=== PATIENT | male | born 1945 | race Caucasian/White ===

== ENCOUNTER 2023-05-27 10:48 | Inpatient (IN) | payer OTHER ==
[2023-05-27] VITALS (16 sets, daily range): BP systolic 121–168; BP diastolic 58–100
[~2023-05-27] VITALS: Ht 175.3 cm; Wt 81.0 kg
[~2023-05-27 10:48] MED LIST: ALBU90OI INH; ATEN100 PO; ATEN25 PO; ATOR10 PO; AZIT250 PO; Aspir 8181 MG PO; CEFD300 PO; DOCU100 PO; DOXA2 PO; DOXA4 PO; DULCOLAX400 MG/5 M PO; FILG480I SC; FISH1000 PO; Hair, Skin & N1 EACH PO; LISI10 PO; LISI20 PO; LISI5 PO; METO25ER PO; MIRALAX17 GM PO; ROSU5 PO; RXCODGUASY PO; SOMATULINE60 MG/0.2 SC
[2023-05-27 11:05] LABS: Calcium, Ionized (POC) 1.13 mmol/L (1.10-1.46); Chloride (POC) 103 mmol/L (98-108); Creatinine (POC) 0.9 mg/dL (0.8-1.3); Glucose (ISTAT POC) 143 mg/dL (70-99); Hemoglobin (POC) 6.8 g/dL (13.5-17.5); Potassium (POC) 5.1 mmol/L (3.5-5.5); Sodium (POC) 139 mmol/L (135-148); Total CO2 (POC) 25 mmol/L (21-32)
[2023-05-27 11:23] LABS: Mean Corpuscular HGB 31.2 pg (26.0-34.0); Mean Corpuscular HGB Conc 30.5 g/dL (31.5-36.5); Mean Corpuscular Volume 102 fL (80-100); Mean Platelet Volume 9.3 fL (9.1-12.4); NRBC ABSOLUTE 0.04 K/mm3 (0.00-0.02); Platelet Count 88 K/mm3 (150-400); RDW Coefficient Variation 21.7 % (11.7-14.2); RDW Standard Deviation 77.9 fL (35.1-46.3)
[2023-05-27 11:28] LABS: Hemoglobin 5.3 g/dL (13.5-17.5); White Blood Cell Count 215.29 K/mm3 (4.00-11.30)
[2023-05-27 11:29] LABS: Hematocrit 17.4 % (37.0-53.0)
[2023-05-27 11:40] LABS: International Normalized Ratio 1.31; Prothrombin Time Results 13.5 Sec (9.7-11.5)
[2023-05-27 11:44] LABS: Magnesium, Blood 1.9 mg/dL (1.6-2.4)
[2023-05-27 12:19] LABS: Albumin, Blood 2.8 g/dL (3.4-5.0); Albumin/Globulin Ratio 0.8 (0.8-1.8); Bilirubin, Total 0.4 mg/dL (0.1-1.0); Bun/Creatinine Ratio 13.3 (12.0-20.0); Calcium, Blood 7.8 mg/dL (8.5-10.1); Creatinine, Blood 0.9 mg/dL (0.60-1.20); Globulin, Blood 3.7 g/dL (2.2-4.0); Potassium, Blood 6.5 mmol/L (3.5-5.5); Total Protein, Blood 6.5 g/dL (6.4-8.2)
[2023-05-27 13:13] LABS: BASOPHILS PERCENT MAN 0 % (0-2); BLASTS PERCENT MAN 85 % (0-0); EOSINOPHILS PERCENT MAN 0 % (0-6); LYMPHOCYTES ABSOLUTE MAN 30.14 K/mm3 (0.84-5.20); LYMPHOCYTES PERCENT MAN 14 % (21-46); MONOCYTES ABSOLUTE MAN 2.15 K/mm3 (0.16-1.47); MONOCYTES PERCENT MAN 1 % (4-13); TOTAL CELLS COUNTED 100
[2023-05-27 14:05] LABS: Calcium, Ionized (POC) 1.06 mmol/L (1.10-1.46); Chloride (POC) 101 mmol/L (98-108); Creatinine (POC) 0.9 mg/dL (0.8-1.3); Glucose (ISTAT POC) 223 mg/dL (70-99); Hemoglobin (POC) 7.1 g/dL (13.5-17.5); Potassium (POC) 3.5 mmol/L (3.5-5.5); Sodium (POC) 140 mmol/L (135-148); Total CO2 (POC) 25 mmol/L (21-32)
[2023-05-27] MEDS ORDERED: FOLIC ACID IV (15:22)
[2023-05-27 16:04] LABS: Percent Saturation 64.8 % (20.0-50.0)
--- NOTE | 2023-05-27 16:13 | NUR ---
PATIENT ADMIT TO PCU 06. ABLE TO STAND AND TRANSFER WITH 1-2 PERSON ASSIST. DENIES NUMBNESS/TINGLING. SHAKY WHEN UP. PATIENT STATES HE FEELS VERY WEAK. PERRLA. MOVING EXTREMITIES EQUALLY. 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 ON ROOM AIR SATING ABOVE 95%. LUNGS SOUNDING CLEAR. PT DENIES SOB/COUGH. EVEN AND UNLABORED RESPIRATIONS. TELE SHOWING SR WITH HR 70-90'S. BP STABLE. PPP. PATIENT DENIES CHEST PAIN AT THIS TIME. STATES THE CHEST PAIN HAS RESOLVED IN EMERGENCY DEPARTMENT. SCD'S IN PLACE. DENIES ABDOMINAL PAIN/NAUSEA. NO SWALLOWING ISSUES NOTED WHEN ADMINISTERING PO TYLENOL AND WATER. PATIENT STATES HE HAS NO ISSUES VOIDING. URINAL AT BEDSIDE. BOWEL TONES PRESENT. PATIENT COMPLAINS OF 5/10 HEADACHE ON ADMIT, PO TYLENOL GIVEN WITH GOOD RELIEF. ECHO BEING DONE AT THIS TIME. PATIENT ADMITED TO PCU WITH 2ND UNIT OF BLOOD INFUSING AT 150ML/HR IN LEFT UPPER ARM IV. HOURLY VITALS IN PROGRESS. ORDERS FOR 3 UNITS TOTAL OF PRBC PATIENT AND UPDATED ON PLAN OF CARE. BLOOD CONSENT IN CHART. PATIENT, AND TWO SONS UPDATED DIRECTOR MARKET INTELLIGENCE LIGHT AND ROOM/UNIT. MED REC COMPELTED WITH AND PATIENT. ONCOLOGY CONSULT CALLED INTO DR. CHAU OFFICE.
--- NOTE | 2023-05-27 17:44 | NUR ---
SHIFT SUMMARY: SEE PREVIOUS NOTE FOR UPDATES. PATIENT EATING DINNER AT THIS TIME. 3RD UNIT OF PRBC INFUSING AT THIS TIME. PATIENT DENIES CHEST PAIN/HEADACHE. NO EVENTS NOTED ON TELE. CONTINUES TO SAT ABOVE 95% ON ROOM AIR. CALL LIGHT IN REACH.
[2023-05-27 19:16] LABS: Hemoglobin 7.9 g/dL (13.5-17.5)
--- NOTE | 2023-05-27 19:43 | NUR ---
ASSUMPTION OF CARE: PATIENT IS ALERT AND ORIENTED X 4 EDENIES CHEST PAIN PRESSSURE OR SOB. INFUSING RBC'S AT 150, TOLERATING WELL, CLEAR WITH DIM BASES BREATH SOUNDS. HR IN THE 70-80'S. CYCLING BLOOD PRESSURES, TOLERATING RBC'S WELL. PATIENT HOB 30-45'. CONCERNS OF FURTHER MEDICAL PLAN. EDUCATED. TROP [id number] AT 1943. 1 X TROP STILL PLANNED. PATIENT OVERALL IMPROVING.
--- NOTE | 2023-05-27 22:03 | NUR ---
INCREASED TROP: CALL TO RESIDENT FOR TROPONIN, MONITOR FOR S&S OF BLEEDING, INCREASED CHEST PAIN, CALL IF NEXT TROP IS STILL INCREASING FOR ADDITIONAL TROP DRAWS, AND FOLLOW UP WITH AM LABS FOR HEMOGLOBIN. PATIENT CURRENTLY RESTING EYES CLOSED, DENIES INCREASED CHEST PAIN, MINOR RESIDUAL BUT IMPROVING, PATIENT WAS ABLE TO STAND WITH 1 ASSIST TO MANAGE CORDS AND LINES.
[2023-05-28 01:21] LABS: Hematocrit 24.8 % (37.0-53.0); Hemoglobin 8.3 g/dL (13.5-17.5); Mean Corpuscular HGB 31.4 pg (26.0-34.0); Mean Corpuscular HGB Conc 33.5 g/dL (31.5-36.5); Mean Platelet Volume 9.5 fL (9.1-12.4); NRBC ABSOLUTE 0.07 K/mm3 (0.00-0.02); Platelet Count 81 K/mm3 (150-400); RDW Coefficient Variation 18.7 % (11.7-14.2); RDW Standard Deviation 61.2 fL (35.1-46.3); Red Blood Cell Count 2.64 M/mm3 (4.30-5.90)
[2023-05-28 01:24] LABS: Mean Corpuscular Volume 94 fL (80-100)
[2023-05-28 01:25] LABS: White Blood Cell Count 200.51 K/mm3 (4.00-11.30)
[2023-05-28 01:42] LABS: BAND PERCENT MAN 1 % (0-8); BASOPHILS PERCENT MAN 0 % (0-2); BLASTS PERCENT MAN 59 % (0-0); Bun/Creatinine Ratio 14.5 (12.0-20.0); Calcium, Blood 7.8 mg/dL (8.5-10.1); Creatinine, Blood 0.83 mg/dL (0.60-1.20); EOSINOPHILS PERCENT MAN 0 % (0-6); LYMPHOCYTES ABSOLUTE MAN 70.17 K/mm3 (0.84-5.20); LYMPHOCYTES PERCENT MAN 35 % (21-46); MONOCYTES ABSOLUTE MAN 8.02 K/mm3 (0.16-1.47); MONOCYTES PERCENT MAN 4 % (4-13); NEUTROPHILS ABSOLUTE MAN 4.01 K/mm3 (1.96-9.15); Potassium, Blood 5.5 mmol/L (3.5-5.5); SEG NEUTROPHILS PERCENT MAN 1 % (41-73); TOTAL CELLS COUNTED 100
--- NOTE | 2023-05-28 01:48 | NUR ---
CRITICAL RESULTS: TROP [id number], WBC 200.51, CALL TO RESIDENT NO ANSWER AT THIS TIME, PATIENT IS ASYMPTOMATIC VSS, - BLOOD PRESSURE, WHICH IS SLIGHTLY SYSTOLIC HYPERTENSIVE IN THE 150'S. DENEIS CHEST PAIN PRESSURE OR SOB. PATIENT RESTING EYES CLOSED HOURLY BLOOD PRESSURES IN PROGRESS.
[2023-05-28 01:51] VITALS: BP 158/84
--- NOTE | 2023-05-28 02:34 | NUR ---
RESIDENT CALL: INFORMED PROVIDER ABOUT LABS, NEW ORDER FOR TROP AND 1 X APPRESOLINE FOR BLOOD PRESSURE. MONITOR FOR SIGNS OF CHEST PAIN PRESSURE OR SOB.
--- NOTE | 2023-05-28 06:48 | NUR ---
EOS: PATIENT STILL CHEST PAIN FREE WITH INCREASING TOLERATION FOR MOBILITY. PATIENT COOPERATIVE ALERT AND ORIENTED, NO CONCERNS FROM THIS RN EXCEPT WHAT WAS PLACD IN NURSING NOTES PRIOR: I.E. TROP, HGB, ADN WBC. HOPING FOR ONCOLOGY TO VISIT IS THE CONCERN DON HAS. PATIENT TOLERATING FLUIDS, SLEPT WELL DURING THE BEGGINING OF THE SHIFT. HYDRALAZINE ONLY WORKED AFTER A COUPLE HOURSS, SYSTOLIC BP 140'S. PATIENT HAS BEEN APPRORPIATE AND CALLING APPROPRIATELY. COOPERATIVE WITH CARE NO CONCERNS FROM THIS RN
[2023-05-28 07:20] VITALS: BP 146/77
--- NOTE | 2023-05-28 07:47 | NUR ---
AM NOTE: PATIENT ALERT AND ORIENTED X4. DENIES NUMBNESS/TINGLING. PATIENT STATES HE IS FEELING MUCH STRONGER. TURNING AND MOVING SELF IN BED. 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 ON ROOM AIR SATING ABOVE 95%. EVEN AND UNLABORED RESPIRATIONS. LUNGS SOUNDING CLEAR. DENIES SOB/COUGH. TELE SHOWING SR WITH HR 80-90'S. DENIES CHEST PAIN/PRESSURE/PALPITATIONS. BP STABLE. PPP. SCD'S IN PLACE. NO EDEMA NOTED. BOWEL TONES PRESENT. DENIES ABDOMINAL PAIN/NAUSEA. EATING AND VOIDING WNL. USING URINAL AT BEDSIDE. SKIN OVERALL C/D/I. PATIENT DENIES OVERALL PAIN THIS AM. FAMILY AT BEDSIDE. THIS RN REVIEWED CALL LIGHT AND FALL PREVENTION WITH PATIENT AND FAMILY. CALL LIGHT IN REACH. PATIENT EATING BREAKFAST AT THIS TIME, DENIES NEEDS.
--- NOTE | 2023-05-28 09:18 | NUR ---
DR. BRADLEY CALLED NURSE STATION THIS AM. ORDER FOR CARDIOLOGY CONSULT AND HEPARIN GTT. CARDIOLOGY CONSULT CALLED INTO ANSWERING SERVICE. PATIENT AND FAMILY UPDATED.
--- NOTE | 2023-05-28 10:33 | NUR ---
DR. HUITRON AND DR. ALMAGUER BY TO SEE PATIENT. HEPARIN DISCONTINUED PER CARDIOLOGY. PLAN FOR DR. CHAU TO SEE PATIENT. CONSULT IN PLACE.
[2023-05-28 11:17] VITALS: BP 155/69
[2023-05-28] MEDS ORDERED: ACYC400 PO (13:39)
[2023-05-28] MEDS ORDERED: Diflucan100 MG PO (13:40)
[2023-05-28] MEDS ORDERED: ASPI325 PO (13:40)
[2023-05-28] MEDS ORDERED: LEVO750 PO (13:43)
--- NOTE | 2023-05-28 14:41 | NUR ---
DISCHARGE: NO ACUTE CHANGES. PATIENT FAMILY AT BEDSIDE FOR DISCHARGE INSTUCTIONS. THIS RN EDUCATED ON NEW MEDICATIONS THAT WERE FAXED TO [facility], SIGNS AND SYMPTOMS OF WHEN TO RETURN, FOLLOW UP APPOINTMENTS AND CHEMO MEDICATION HANDOUT FROM DR. CHAU. IV'S REMOVED WNL. PATIENT LEFT UNIT WITH DISCHARGE PACKET AND ALL PERSONAL BELONGINGS VIA WHEELCHAIR.
== END 2023-05-28 14:39 | disposition home or self-care (01) | DRG 834 ==
LOC: ER 10:48 → PCU 10:49 → ER 10:49 → PCU 13:36
PROVIDERS: Student in an Organized Health Care Education/Training Program; ADMIT Internal Medicine
PROC: 30233N1 Transfusion of Nonautologous Red Blood Cells into Peripheral Vein, Percutaneous Approach (ICD-10-PCS; principal; 2023-05-27)
DX: C92.00 Acute myeloblastic leukemia, not having achieved remission (principal); I21.A1 Myocardial infarction type 2; C7A.8 Other malignant neuroendocrine tumors; D63.0 Anemia in neoplastic disease; D51.9 Vitamin B12 deficiency anemia, unspecified; E87.5 Hyperkalemia; N40.0 Benign prostatic hyperplasia without lower urinary tract symptoms; Z66 Do not resuscitate; E78.5 Hyperlipidemia, unspecified; K21.9 Gastro-esophageal reflux disease without esophagitis; D69.6 Thrombocytopenia, unspecified; R73.9 Hyperglycemia, unspecified; I10 Essential (primary) hypertension; Z88.0 Allergy status to penicillin; Z87.891 Personal history of nicotine dependence; Z90.49 Acquired absence of other specified parts of digestive tract
CPT/HCPCS: 36415; 36430; 71260; 80047; 80048; 80053; 82330; 82607; 82728; 82746; 82947; 83540; 83550; 83735; 83880; 84132; 84484; 85014; 85018; 85025; 85520; 85610; 85730; 86850; 86900; 86901; 86923; 93005; 93010; 93306; 94644; 94664; 96374-59; 96375-59; 99285-25; A9270; J0360; J1644; J1815; J7030; J7040; J7799; P9016; Q9967

== ENCOUNTER 2023-05-31 17:03 | Inpatient (IN) | payer OTHER ==
[~2023-05-31] VITALS: Ht 175.3 cm; Wt 91.7 kg
[~2023-05-31 17:03] MED LIST changes: +ACYC400 PO; +ASPI325 PO; +Diflucan100 MG PO; +FOLIC ACID IV; +LEVO750 PO
[2023-05-31] MEDS ORDERED: B-12 COMPL1000 MCG/2 IM (17:35)
[2023-05-31 19:19] LABS: Source, Urine Clean Catch
[2023-05-31 19:29] LABS: Bilirubin, Urine Neg (Neg); Blood, Urine 1+ (Neg); Glucose Qualitative, Urine Neg (Neg); Ketones, Urine Neg (Neg); Leukocyte Esterase, Urine Neg (Neg); Nitrite, Urine Neg (Neg); Protein, Urine 1+ (Neg); Specific Gravity, Urine 1.015 (1.003-1.022); Urobilinogen, Urine NORM (Normal)
[2023-05-31 19:39] LABS: Appearance, Urine Clear (Clear); Color, Urine Yellow (P-Yellow)
[2023-05-31 19:40] LABS: Bacteria Not Seen /hpf; Red Blood Cells, Urine 0-2 /hpf (0-2); Squamous Epithelial Cells Rare /hpf (Few); White Blood Cells, Urine 0-2 /hpf (0-5)
[2023-05-31 21:35] VITALS: BP 152/84
--- NOTE | 2023-05-31 22:07 | NUR ---
PT A&OX4, WAS SEEN AT [place] EARLIER TODAY AFTER PRBC TRANSFUSION ON TUESDAY WITH HEPRIN DRIP RIGHT ARM BECAME PAINFUL AND SWOLLEN THAT EVENING PT STATES RETURN TO [place] FOR TREAT AND WAS TRANSFERED HERE. RIGHT ARM APPEARS SWOLLEN FIRM WARM TO TOUCH. PT REPORTS PAINFUL WITH MOVEMENT. LUNGS ARE CLEAR T/O ABDOMEN TO SOFT NONTENDER PT REPORTS REGULAR BM, 2 IV LEFT HAND AND AC PLAACED AT [facility]. INDEPENDENT ADLIB, REPORTS URGENCY TO VOID. BED LOWERED CALL WITHIN REACH WILL CONTINUE TO MONITOR.
[2023-06-01 04:46] VITALS: BP 123/84
[2023-06-01 05:45] LABS: Hematocrit 27.3 % (37.0-53.0); Mean Corpuscular HGB 32.1 pg (26.0-34.0); Mean Corpuscular Volume 98 fL (80-100); RDW Standard Deviation 66.7 fL (35.1-46.3)
[2023-06-01 06:08] LABS: Mean Platelet Volume 9.1 fL (9.1-12.4); Platelet Count 77 K/mm3 (150-400)
[2023-06-01 06:13] LABS: White Blood Cell Count 207.97 K/mm3 (4.00-11.30)
[2023-06-01 06:20] LABS: Bun/Creatinine Ratio 10.5 (12.0-20.0); Calcium, Blood 8.4 mg/dL (8.5-10.1); Creatinine, Blood 1.33 mg/dL (0.60-1.20); Potassium, Blood 4.6 mmol/L (3.5-5.5)
[2023-06-01 06:59] LABS: BASOPHILS PERCENT MAN 0 % (0-2); BLASTS PERCENT MAN 84 % (0-0); EOSINOPHILS PERCENT MAN 0 % (0-6); LYMPHOCYTES % ATYPICAL MANUAL 1 % (0-0); LYMPHOCYTES ABSOLUTE MAN 22.87 K/mm3 (0.84-5.20); LYMPHOCYTES PERCENT MAN 10 % (21-46); MONOCYTES ABSOLUTE MAN 10.39 K/mm3 (0.16-1.47); MONOCYTES PERCENT MAN 5 % (4-13); TOTAL CELLS COUNTED 100
[2023-06-01 07:13] VITALS: BP 143/80
[2023-06-01 14:36] VITALS: BP 146/80
--- NOTE | 2023-06-01 18:45 | NUR ---
PT IS ALERT AND ORIENTED X4. NO ACUTE CHANGES THIS SHIFT. PAIN IS WELL CONTROLLED WITH PAIN MEDICAION AND ICE PACKS TO THE RIGHT ARM. INDEPENDENT IN THE ROOM. PT FAMILY IN AND OUT TODAY. EDUCATED PT ON MEDICATION CHANGES DUE TO KIDNEY FUNCTION. NO ACUTE CHANGES.
[2023-06-01 19:27] VITALS: BP 123/67
[2023-06-02 03:50] VITALS: BP 131/73
--- NOTE | 2023-06-02 04:51 | NUR ---
SHIFT SUMMARY. NO ACUTE CHANGES. PATIENT IS A/O X4, ABLE TO MAKE HIS NEEDS KNOWN. PATIENTS FAMILY IN THIS EVENING. PATIENT HAD NO C/O PAIN THIS SHIFT. PATIENT SLEPT WELL T/O NIGHT WITH RESPIRATIONS EQUAL AND UNLABORED. BED IS LOCKED IN THE LOWEST POSITION WITH CALL LIGHT IN REACH. NO S/S OF DISTRESS NOTED AT THIS TIME.
[2023-06-02 05:58] LABS: Hematocrit 26.8 % (37.0-53.0); Hemoglobin 8.7 g/dL (13.5-17.5); Mean Corpuscular HGB 31.5 pg (26.0-34.0); Mean Corpuscular HGB Conc 32.5 g/dL (31.5-36.5); Mean Corpuscular Volume 97 fL (80-100); Mean Platelet Volume 9.6 fL (9.1-12.4); NRBC ABSOLUTE 0.02 K/mm3 (0.00-0.02); Platelet Count 79 K/mm3 (150-400); RDW Coefficient Variation 18.6 % (11.7-14.2); RDW Standard Deviation 63.7 fL (35.1-46.3); Red Blood Cell Count 2.76 M/mm3 (4.30-5.90)
[2023-06-02 06:23] LABS: Albumin, Blood 2.5 g/dL (3.4-5.0); Albumin/Globulin Ratio 0.6 (0.8-1.8); Bilirubin, Total 0.3 mg/dL (0.1-1.0); Bun/Creatinine Ratio 9.7 (12.0-20.0); Calcium, Blood 8.4 mg/dL (8.5-10.1); Creatinine, Blood 2.68 mg/dL (0.60-1.20); Globulin, Blood 4.1 g/dL (2.2-4.0); Potassium, Blood 5.1 mmol/L (3.5-5.5); Total Protein, Blood 6.6 g/dL (6.4-8.2)
[2023-06-02 06:28] LABS: White Blood Cell Count 169.68 K/mm3 (4.00-11.30)
[2023-06-02 07:11] LABS: BASOPHILS PERCENT MAN 0 % (0-2); BLASTS PERCENT MAN 83 % (0-0); EOSINOPHILS PERCENT MAN 0 % (0-6); LYMPHOCYTES ABSOLUTE MAN 25.45 K/mm3 (0.84-5.20); LYMPHOCYTES PERCENT MAN 15 % (21-46); MONOCYTES ABSOLUTE MAN 1.69 K/mm3 (0.16-1.47); MONOCYTES PERCENT MAN 1 % (4-13); NEUTROPHILS ABSOLUTE MAN 1.69 K/mm3 (1.96-9.15); SEG NEUTROPHILS PERCENT MAN 1 % (41-73); TOTAL CELLS COUNTED 100
[2023-06-02 07:37] VITALS: BP 133/71
[2023-06-02 10:57] LABS: Thyroid Stimulating Hormone 1.56 uIU/mL (0.360-4.800); Uric Acid, Blood 9.2 mg/dL (3.5-7.2)
[2023-06-02 15:17] LABS: Eosinophils-Raw #,Urine 0
[2023-06-02 16:06] VITALS: BP 107/60
--- NOTE | 2023-06-02 16:47 | NUR ---
NO ACUTE CHANGES THIS SHIFT. PT ANTIBIOTICS HAVE BEEN CHANGES TO REFLECT HIS KIDNEY FUNCTION. MI REPORTS NO BM FOR 4 DAYS. BOWEL CARE MEDICATIONS TO START TONIGHT. PT DENIES PAIN IN CHEST AND SOB. DENIES PAIN IN RIGHT ARM THIS SHIFT. FAMILY HAS BEEN IN AND OUT ALL DAY. PT REPORTS EXHAUSTION. RECOMMENDING LIMITING SLEEP INTERUPTIONS FOR NON ESSENTIAL NEEDS. NOTE ON DOOR TO SEE RN BEFORE ENTERING. PT REPORTS INCREASE IN PO INTAKE. DR. MORALES WOULD LIKE STRICT I/O. NEPHROLOGY CONSULTED. PT IS ABLE TO MAKE NEEDS KNOWN. BED IS IN THE LOWEST POSITION CALL LIGHT IN REACH. PT IS INDEPENDENT IN THE ROOM. RAleshaA
[2023-06-02 19:32] VITALS: BP 116/58
--- NOTE | 2023-06-03 04:26 | NUR ---
SHIFT SUMMARY PATIENT HAD NO ACUTE CHANGES. AXOX [address] IN ROOM. DR Christianson IN FOR ROOM FOR CONSULT. PIV REMAINS INTACT. VSS/AFEBRILE. DENIES CHEST PAIN, SOB, AND N/V. DENIES PAIN IN RIGHT UPPER ARM. COOPERATIVE WITH CARE. CALL LIGHT IN REACH. BED IN LOWEST POSITION. WILL CONTINUE TO MONITOR UNTIL DAY SHIFT NURSE ASSUMES CARE.
[2023-06-03 04:38] VITALS: BP 134/68
[2023-06-03 05:20] LABS: Hematocrit 24.4 % (37.0-53.0); Hemoglobin 7.8 g/dL (13.5-17.5); Mean Corpuscular HGB 31.3 pg (26.0-34.0); Mean Corpuscular Volume 98 fL (80-100); RDW Coefficient Variation 18.8 % (11.7-14.2); RDW Standard Deviation 66.4 fL (35.1-46.3); Red Blood Cell Count 2.49 M/mm3 (4.30-5.90)
[2023-06-03 05:54] LABS: Mean Platelet Volume 9.8 fL (9.1-12.4); Platelet Count 79 K/mm3 (150-400)
[2023-06-03 05:55] LABS: White Blood Cell Count 167.44 K/mm3 (4.00-11.30)
[2023-06-03 07:05] VITALS: BP 129/63
[2023-06-03 07:06] LABS: BASOPHILS PERCENT MAN 0 % (0-2); BLASTS PERCENT MAN 84 % (0-0); EOSINOPHILS PERCENT MAN 0 % (0-6); LYMPHOCYTES % ATYPICAL MANUAL 2 % (0-0); LYMPHOCYTES ABSOLUTE MAN 23.44 K/mm3 (0.84-5.20); LYMPHOCYTES PERCENT MAN 12 % (21-46); MONOCYTES ABSOLUTE MAN 3.34 K/mm3 (0.16-1.47); MONOCYTES PERCENT MAN 2 % (4-13); TOTAL CELLS COUNTED 100
[2023-06-03 07:23] LABS: Albumin, Blood 2.3 g/dL (3.4-5.0); Anion Gap 5 mmol/L (6-16); Blood Urea Nitrogen 34 mg/dL (8-24); Bun/Creatinine Ratio 11.9 (12.0-20.0); CO2, Blood 26 mmol/L (21-32); Calcium, Blood 8.4 mg/dL (8.5-10.1); Chloride, Blood 110 mmol/L (98-108); Creatinine, Blood 2.86 mg/dL (0.60-1.20); Glomerular Filtration Rate 22 (60-); Glucose, Blood 144 mg/dL (70-99); Phosphorus, Blood 3.9 mg/dL (2.5-4.9); Potassium, Blood 4.4 mmol/L (3.5-5.5); Sodium, Blood 141 mmol/L (136-145)
[2023-06-03 16:09] VITALS: BP 120/66
--- NOTE | 2023-06-03 19:45 | NUR ---
AWAKE. SMILING. VOICED TYLENOL EFFECTIVE. DENIED HEADACHE. CALL LIGHT IN REACH. NEUTROPENIC PRECAUIONS MAINTAINED.
[2023-06-03 19:50] VITALS: BP 121/66
--- NOTE | 2023-06-03 20:42 | NUR ---
SHIFT SUMMARY PATIENT WITH SLIGHT HEADACHE THIS EVENING.STATES EARLIER TODAY WAS A LITTLE OFF WHEN TAKING HIS SHOWER BUT OTHERWISE NO COMPLAINTS. OTHERWISE NO ACUTE EVENTS DURING SHIFT. BED IN LOW POSITION, CALL LIGHT IN REACH. PATIENT AWARE OF LIMITIATIONS AND ABLE TO MAKE NEEDS KNOWN.
--- NOTE | 2023-06-03 20:58 | NUR ---
PT A&OX4 UP ADLIB CALL APPROPERAITELY, PT HAS RIGHT ARM THROMBOPHELBITIS REDUCED SWELLING LOCALIZED NOW TO AC AND ELBOW MOSTLY. L HAND IV IS PATENT SALINE LOCKED, LUNGS ARE CLEAR T/O, BOWEL SOUNDS HYPERACTIVE. CALL LIGHT WITHIN REACH BED LOWERED WILL CONTINUE TO MONITOR.
[2023-06-04 03:33] VITALS: BP 140/75
--- NOTE | 2023-06-04 03:37 | NUR ---
WEATHER FORECASTER SUMMARY VSS. DAY SHIFT REPORTED HEADACHE FOR WHICH HE HAD RECEIVED TYLENOL. MED EFFECTIVE, START OF SHIFT WAS SMILING AND RECEPTIVE. RIGHT ARM SWOLLEN AND SLIGHTLY DISCOLORED. RN WHO HAD HIM YESTERDAY VOICED SWELLING AND DISCOLORATION IMPROVED. PT DISPLAYED ABILITY TO MOVE ARM WITH GOOD ROM. HAS BEEN RESTING QUIETLY WITH FEW INTERRUPTIONS. NEUTROPENIC PRECAUIONS MAINTAINED. CALL LIGHT IN REACH. RAILS UP X 2 FOR SAFETY. WILL CONTINUE TO MONITOR
[2023-06-04 05:23] LABS: Hemoglobin 8.5 g/dL (13.5-17.5); Mean Corpuscular HGB 31.1 pg (26.0-34.0); Mean Corpuscular HGB Conc 31.5 g/dL (31.5-36.5); Mean Corpuscular Volume 99 fL (80-100); Mean Platelet Volume 9.8 fL (9.1-12.4); NRBC ABSOLUTE 0.03 K/mm3 (0.00-0.02); Platelet Count 91 K/mm3 (150-400); RDW Coefficient Variation 18.6 % (11.7-14.2); RDW Standard Deviation 65.2 fL (35.1-46.3); Red Blood Cell Count 2.73 M/mm3 (4.30-5.90)
[2023-06-04 05:32] LABS: White Blood Cell Count 170.38 K/mm3 (4.00-11.30)
[2023-06-04 06:03] LABS: BASOPHILS PERCENT MAN 0 % (0-2); BLASTS PERCENT MAN 93 % (0-0); EOSINOPHILS PERCENT MAN 0 % (0-6); LYMPHOCYTES ABSOLUTE MAN 5.11 K/mm3 (0.84-5.20); LYMPHOCYTES PERCENT MAN 3 % (21-46); MONOCYTES ABSOLUTE MAN 5.11 K/mm3 (0.16-1.47); MONOCYTES PERCENT MAN 3 % (4-13); SEG NEUTROPHILS PERCENT MAN 1 % (41-73); TOTAL CELLS COUNTED 100
[2023-06-04 07:02] LABS: Albumin, Blood 2.5 g/dL (3.4-5.0); Anion Gap 5 mmol/L (6-16); Blood Urea Nitrogen 45 mg/dL (8-24); Bun/Creatinine Ratio 15.8 (12.0-20.0); CO2, Blood 28 mmol/L (21-32); Calcium, Blood 8.9 mg/dL (8.5-10.1); Chloride, Blood 109 mmol/L (98-108); Creatinine, Blood 2.85 mg/dL (0.60-1.20); Glomerular Filtration Rate 22 (60-); Glucose, Blood 125 mg/dL (70-99); Phosphorus, Blood 4.4 mg/dL (2.5-4.9); Potassium, Blood 4.9 mmol/L (3.5-5.5); Sodium, Blood 142 mmol/L (136-145); Uric Acid, Blood 10.2 mg/dL (3.5-7.2)
[2023-06-04 07:14] VITALS: BP 158/87
[2023-06-04 16:05] VITALS: BP 131/72
--- NOTE | 2023-06-04 18:16 | NUR ---
SHIFT SUMMARY C/O MILD HEADACHE TREATED WITH APAP, POSITIVE RESULTS. INDEPENDENT IN ROOM. IV DRESSING CHANGED THIS SHIFT. RUNNING IV FLUIDS, NO COMPLICATIONS. WILL CONTINUE TO MONITOR
[2023-06-04 19:27] VITALS: BP 116/61
--- NOTE | 2023-06-05 03:23 | NUR ---
EBAY RESELLER SUMMARY VSS. NEUTROPENIC PRECAUTIONS MAINTAINED FOR PT HEALTH. DENIED PAIN WHEN ASKED. IVF INFUSED PER ORDERS. RIGHT ARM SWELLING APPEARS DECREASED COMPARED WITH THAT OF 24 HR AGO. DISPLAYED FULL ROM OF ARM. HAS BEEN RESTING QUIELTY WITH FEW INTERRUPTIONS. CALL LIGHT IN REACH. RAILS UP X 2 FORSAFETY. WILL CONTINUE TO MONITOR
[2023-06-05 04:30] VITALS: BP 149/81
[2023-06-05 05:47] LABS: Hematocrit 25.1 % (37.0-53.0); Hemoglobin 7.8 g/dL (13.5-17.5); Mean Corpuscular HGB Conc 31.1 g/dL (31.5-36.5); Mean Corpuscular Volume 100 fL (80-100); Mean Platelet Volume 9.7 fL (9.1-12.4); NRBC ABSOLUTE 0.03 K/mm3 (0.00-0.02); Platelet Count 94 K/mm3 (150-400); RDW Coefficient Variation 18.5 % (11.7-14.2); RDW Standard Deviation 66.7 fL (35.1-46.3); Red Blood Cell Count 2.52 M/mm3 (4.30-5.90)
[2023-06-05 05:50] LABS: White Blood Cell Count 172.35 K/mm3 (4.00-11.30)
[2023-06-05 06:12] LABS: Albumin, Blood 2.5 g/dL (3.4-5.0); Anion Gap 3 mmol/L (6-16); Blood Urea Nitrogen 51 mg/dL (8-24); Bun/Creatinine Ratio 18.6 (12.0-20.0); CO2, Blood 28 mmol/L (21-32); Calcium, Blood 8.6 mg/dL (8.5-10.1); Chloride, Blood 109 mmol/L (98-108); Creatinine, Blood 2.74 mg/dL (0.60-1.20); Glomerular Filtration Rate 23 (60-); Glucose, Blood 124 mg/dL (70-99); Phosphorus, Blood 4.1 mg/dL (2.5-4.9); Potassium, Blood 5.6 mmol/L (3.5-5.5); Sodium, Blood 140 mmol/L (136-145)
[2023-06-05 06:18] LABS: BASOPHILS PERCENT MAN 0 % (0-2); BLASTS PERCENT MAN 91 % (0-0); EOSINOPHILS PERCENT MAN 0 % (0-6); LYMPHOCYTES ABSOLUTE MAN 10.34 K/mm3 (0.84-5.20); LYMPHOCYTES PERCENT MAN 6 % (21-46); MONOCYTES ABSOLUTE MAN 5.17 K/mm3 (0.16-1.47); MONOCYTES PERCENT MAN 3 % (4-13); TOTAL CELLS COUNTED 100
[2023-06-05 07:25] VITALS: BP 152/87
[2023-06-05 09:14] LABS: Percent Saturation 95.3 % (20.0-50.0)
[2023-06-05 12:33] LABS: Bun/Creatinine Ratio 18.6 (12.0-20.0); Creatinine, Blood 2.64 mg/dL (0.60-1.20); Potassium, Blood 4.5 mmol/L (3.5-5.5)
[2023-06-05 14:48] VITALS: BP 129/72
[2023-06-05 19:56] VITALS: BP 128/67
[2023-06-06 04:31] VITALS: BP 122/72
--- NOTE | 2023-06-06 05:42 | NUR ---
SHIFT SUMMARY 77 YR M ADMITTED ON 06/01/23 FOR THROMBOPHLEBITIS OF RIGHT ARM. FULL CODE. NO ACUTE CHANGES THIS SHIFT. PT WAS GIVEN TYLENOL PER EMAR FOR C/O HEADACHE. NO OTHER C/O PAIN OR DISCOMFORT. PT APPEARS TO HAVE RESTED COMFORTABLY FOR MOST OF THIS SHIFT. NO C/O CHEST PAIN, SOB, N/V. NEUTROPENIC CAUTIONS BEING TAKEN.
[2023-06-06 06:15] LABS: Hematocrit 23.4 % (37.0-53.0); Hemoglobin 7.6 g/dL (13.5-17.5); Mean Corpuscular HGB 31.8 pg (26.0-34.0); Mean Corpuscular HGB Conc 32.5 g/dL (31.5-36.5); Mean Corpuscular Volume 98 fL (80-100); Mean Platelet Volume 9.7 fL (9.1-12.4); Platelet Count 91 K/mm3 (150-400); RDW Coefficient Variation 18.5 % (11.7-14.2); RDW Standard Deviation 65.1 fL (35.1-46.3); Red Blood Cell Count 2.39 M/mm3 (4.30-5.90)
[2023-06-06 06:35] LABS: White Blood Cell Count 163.04 K/mm3 (4.00-11.30)
[2023-06-06 06:40] LABS: Albumin, Blood 2.5 g/dL (3.4-5.0); Anion Gap 3 mmol/L (6-16); Blood Urea Nitrogen 53 mg/dL (8-24); Bun/Creatinine Ratio 20.6 (12.0-20.0); CO2, Blood 28 mmol/L (21-32); Calcium, Blood 8.6 mg/dL (8.5-10.1); Chloride, Blood 111 mmol/L (98-108); Creatinine, Blood 2.57 mg/dL (0.60-1.20); Glomerular Filtration Rate 25 (60-); Glucose, Blood 129 mg/dL (70-99); Phosphorus, Blood 4.1 mg/dL (2.5-4.9); Sodium, Blood 142 mmol/L (136-145)
[2023-06-06 07:10] LABS: BASOPHILS PERCENT MAN 0 % (0-2); BLASTS PERCENT MAN 84 % (0-0); EOSINOPHILS PERCENT MAN 0 % (0-6); LYMPHOCYTES % ATYPICAL MANUAL 1 % (0-0); LYMPHOCYTES ABSOLUTE MAN 17.93 K/mm3 (0.84-5.20); LYMPHOCYTES PERCENT MAN 10 % (21-46); MONOCYTES ABSOLUTE MAN 8.15 K/mm3 (0.16-1.47); MONOCYTES PERCENT MAN 5 % (4-13); TOTAL CELLS COUNTED 100
[2023-06-06 07:12] LABS: SEG NEUTROPHILS PERCENT MAN 0 % (41-73)
[2023-06-06 07:14] VITALS: BP 141/81
[2023-06-06] MEDS ORDERED: ELIQUIS5 M2 PO (10:54)
[2023-06-06] MEDS ORDERED: DOXY100 PO (10:57)
[2023-06-06] MEDS ORDERED: Carvedilol12.5 MG PO (10:57)
[2023-06-06] MEDS ORDERED: Isosorbide Mono30 MG PO (10:58)
[2023-06-06] MEDS ORDERED: LOKELMA10 GM PO (10:59)
[2023-06-06] MEDS ORDERED: VISBIOME 112.51 EACH PO (10:59)
--- NOTE | 2023-06-06 12:12 | NUR ---
DISCHARGE NOTE PT DISCHARGED TO HOME, PICKED UP BY HIS . IV REMOVED. DISCHARGE INFORMATION AND EDUCATION PROVIDED TO THE PT. MEDICATIONS FAXED TO THE PHARMACY OF HIS CHOICE. PERSONAL BELONGINGS RETURNED.
== END 2023-06-06 12:00 | disposition home or self-care (01) | DRG 280 ==
LOC: ER 17:03 → MEDS 17:04
PROVIDERS: Emergency Medicine; Family Medicine; Hospitalist; Internal Medicine; Nurse Practitioner Acute Care; ADMIT Internal Medicine
DX: I80.8 Phlebitis and thrombophlebitis of other sites (principal); N17.0 Acute kidney failure with tubular necrosis; I21.4 Non-ST elevation (NSTEMI) myocardial infarction; I82.611 Acute embolism and thrombosis of superficial veins of right upper extremity; C92.00 Acute myeloblastic leukemia, not having achieved remission; C7A.019 Malignant carcinoid tumor of the small intestine, unspecified portion; L03.113 Cellulitis of right upper limb; D84.9 Immunodeficiency, unspecified; N40.0 Benign prostatic hyperplasia without lower urinary tract symptoms; I10 Essential (primary) hypertension; K21.9 Gastro-esophageal reflux disease without esophagitis; E78.5 Hyperlipidemia, unspecified; D63.0 Anemia in neoplastic disease; D69.6 Thrombocytopenia, unspecified; E87.6 Hypokalemia; Z88.0 Allergy status to penicillin; Z90.49 Acquired absence of other specified parts of digestive tract; Z87.891 Personal history of nicotine dependence
CPT/HCPCS: 36415; 71045; 76770; 80048; 80053; 80069; 81001; 82570; 82607; 82728; 82746; 83540; 83550; 83605; 84300; 84443; 84550; 85025; 87040; 87205; 93971; 96365; 96375; 99285-25; A9270; G0378; J0690; J3010; J3370; J7030; J7050

== ENCOUNTER 2023-06-09 04:08 | Day surgery (SDC) | payer OTHER ==
[~2023-06-09 04:08] MED LIST changes: +B-12 COMPL1000 MCG/2 IM; +Carvedilol12.5 MG PO; +DOXY100 PO; +ELIQUIS5 M2 PO; +Isosorbide Mono30 MG PO; +LOKELMA10 GM PO; +VISBIOME 112.51 EACH PO
[2023-06-09] MEDS ORDERED: NS 250 ML IV PRN (11:35)
[2023-06-09 14:43] VITALS: BP 120/61
[2023-06-09 15:43] VITALS: BP 133/56
[2023-06-09 16:19] VITALS: BP 132/60
== END 2023-06-09 16:19 | disposition home or self-care (01) ==
LOC: ATC 04:08
DX: C92.00 Acute myeloblastic leukemia, not having achieved remission (principal)
CPT/HCPCS: 36430; 86850; 86900; 86901; 86923; J7050; P9016

== ENCOUNTER 2023-06-16 13:38 | Emergency (ER) | payer OTHER ==
[~2023-06-16] VITALS: Ht 172.7 cm; Wt 74.8 kg
[2023-06-16] MEDS ORDERED: ALLOPURINOL100 M1 PO (14:09)
[2023-06-16] MEDS ORDERED: CARVEDILOL12.5 MG PO (14:09)
[2023-06-16 15:23] LABS: Bun/Creatinine Ratio 25.3 (12.0-20.0); Calcium, Blood 8.4 mg/dL (8.5-10.1); Creatinine, Blood 1.7 mg/dL (0.60-1.20); Potassium, Blood 4.1 mmol/L (3.5-5.5)
[2023-06-16 18:45] VITALS: BP 129/74
== END 2023-06-16 19:53 | disposition home or self-care (01) ==
LOC: ER 13:38
PROVIDERS: Emergency Medicine
DX: S06.9X1A Unspecified intracranial injury with loss of consciousness of 30 minutes or less, initial encounter (principal); D64.9 Anemia, unspecified; D61.818 Other pancytopenia; W18.30XA Fall on same level, unspecified, initial encounter; I10 Essential (primary) hypertension; E78.5 Hyperlipidemia, unspecified; Z88.0 Allergy status to penicillin; Z79.899 Other long term (current) drug therapy
CPT/HCPCS: 36430; 70450; 80048; 86850; 86900; 86901; 86923; 93005; 93010; 99285-25; J7030; P9016

== ENCOUNTER 2023-06-23 05:05 | Day surgery (SDC) | payer OTHER ==
[~2023-06-23 05:05] MED LIST changes: +ALLOPURINOL100 M1 PO; +CARVEDILOL12.5 MG PO
[2023-06-23 13:40] VITALS: BP 129/63
[2023-06-23 13:57] VITALS: BP 105/46
[2023-06-23 14:57] VITALS: BP 120/58
[2023-06-23 15:23] VITALS: BP 124/60
[2023-06-23 15:47] VITALS: BP 126/52
[2023-06-23 17:02] VITALS: BP 146/71
[2023-06-24] MEDS ORDERED: LISI20 PO (00:50)
[2023-06-24] MEDS ORDERED: LEVO750 PO (09:50)
[2023-06-24] MEDS ORDERED: Diflucan100 MG PO (09:50)
[2023-06-24] MEDS ORDERED: VENCLEXTA100 MG PO (09:51)
[2023-06-24] MEDS ORDERED: DOXA4 PO (09:51)
== END 2023-06-23 17:06 | disposition home or self-care (01) ==
LOC: ATC 05:05
DX: C7A.098 Malignant carcinoid tumors of other sites (principal); I10 Essential (primary) hypertension; E78.5 Hyperlipidemia, unspecified; Z87.891 Personal history of nicotine dependence; Z88.0 Allergy status to penicillin; Z79.899 Other long term (current) drug therapy
CPT/HCPCS: 36430; 86850; 86900; 86901; 86923; J7050; P9016

== ENCOUNTER 2023-06-23 18:02 | Inpatient (IN) | payer OTHER ==
[~2023-06-23] VITALS: Ht 172.7 cm; Wt 74.2 kg
[2023-06-23 19:44] LABS: Hematocrit 23.6 % (37.0-53.0); Hemoglobin 7.9 g/dL (13.5-17.5); Mean Corpuscular HGB 29.4 pg (26.0-34.0); Mean Corpuscular HGB Conc 33.5 g/dL (31.5-36.5); Mean Corpuscular Volume 88 fL (80-100); Mean Platelet Volume 10.9 fL (9.1-12.4); Platelet Count 80 K/mm3 (150-400); RDW Coefficient Variation 14.2 % (11.7-14.2); RDW Standard Deviation 45.1 fL (35.1-46.3); Red Blood Cell Count 2.69 M/mm3 (4.30-5.90)
[2023-06-23 20:02] LABS: BASOPHILS PERCENT AUTO 0 % (0-2); EOSINOPHILS PERCENT AUTO 0 % (0-6); IMMATURE GRAN PERCENT AUTO 0 % (0-1); LYMPHOCYTES ABSOLUTE AUTO 0.15 K/mm3 (0.84-5.20); LYMPHOCYTES PERCENT AUTO 75 % (21-46); MONOCYTES ABSOLUTE AUTO 0.01 K/mm3 (0.16-1.47); MONOCYTES PERCENT AUTO 5 % (4-13); NEUTROPHILS ABSOLUTE AUTO 0.04 K/mm3 (1.96-9.15); NEUTROPHILS PERCENT AUTO 20 % (41-73)
[2023-06-23 20:03] LABS: Albumin, Blood 2.6 g/dL (3.4-5.0); Albumin/Globulin Ratio 0.5 (0.8-1.8); Bilirubin, Total 2.3 mg/dL (0.1-1.0); Bun/Creatinine Ratio 19.3 (12.0-20.0); Calcium, Blood 8.7 mg/dL (8.5-10.1); Creatinine, Blood 1.4 mg/dL (0.60-1.20); Globulin, Blood 5.1 g/dL (2.2-4.0); Potassium, Blood 3.7 mmol/L (3.5-5.5); Total Protein, Blood 7.7 g/dL (6.4-8.2)
[2023-06-24] MEDS ORDERED: LISI20 PO (00:50)
[2023-06-24 01:28] VITALS: BP 147/76
[2023-06-24 05:37] LABS: Hematocrit 19.7 % (37.0-53.0); Hemoglobin 6.8 g/dL (13.5-17.5); Mean Corpuscular HGB 30.2 pg (26.0-34.0); Mean Corpuscular HGB Conc 34.5 g/dL (31.5-36.5); Mean Corpuscular Volume 88 fL (80-100); Mean Platelet Volume 11.1 fL (9.1-12.4); Platelet Count 66 K/mm3 (150-400); RDW Coefficient Variation 14.6 % (11.7-14.2); RDW Standard Deviation 46.5 fL (35.1-46.3); Red Blood Cell Count 2.25 M/mm3 (4.30-5.90)
[2023-06-24 05:58] LABS: White Blood Cell Count 0.26 K/mm3 (4.00-11.30)
[2023-06-24 06:01] LABS: Albumin, Blood 2.2 g/dL (3.4-5.0); Albumin/Globulin Ratio 0.5 (0.8-1.8); Bun/Creatinine Ratio 18.4 (12.0-20.0); Calcium, Blood 7.9 mg/dL (8.5-10.1); Creatinine, Blood 1.41 mg/dL (0.60-1.20); Globulin, Blood 4.4 g/dL (2.2-4.0); Total Protein, Blood 6.6 g/dL (6.4-8.2)
[2023-06-24 06:25] LABS: BASOPHILS PERCENT MAN 0 % (0-2); EOSINOPHILS PERCENT MAN 0 % (0-6); LYMPHOCYTES ABSOLUTE MAN 0.19 K/mm3 (0.84-5.20); LYMPHOCYTES PERCENT MAN 76 % (21-46); MONOCYTES ABSOLUTE MAN 0.02 K/mm3 (0.16-1.47); MONOCYTES PERCENT MAN 8 % (4-13); NEUTROPHILS ABSOLUTE MAN 0.04 K/mm3 (1.96-9.15); SEG NEUTROPHILS PERCENT MAN 16 % (41-73); TOTAL CELLS COUNTED 25
--- NOTE | 2023-06-24 07:21 | NUR ---
Shift Summary Pt was admitted from ED to this unit with dx of L lobe [place]. Pt is having severe chest pain, worse with movement and deep breaths. NS running at 75, PT rcving IV ABX, and IV Toradol + Fenanyl for pain. WBC is 0.20 on arrival, pt in neutropenic precautions. Pt is NPO at this time except for bottled water. He is AOx4, too weak and painful to ambulate at this time, independent at baseline.
[2023-06-24 08:10] VITALS: BP 125/71
[2023-06-24] MEDS ORDERED: LEVO750 PO (09:50)
[2023-06-24] MEDS ORDERED: Diflucan100 MG PO (09:50)
[2023-06-24] MEDS ORDERED: VENCLEXTA100 MG PO (09:51)
[2023-06-24] MEDS ORDERED: DOXA4 PO (09:51)
--- NOTE | 2023-06-24 11:27 | NUR ---
MET WITH PATIENT AND FAMILY. PT HAD JUST RECIEVED PAIN MEDICATION. HE REPORTED THAT HE HAD BEEN ON ORAL CHEMO FOR HIS CANCER AND WAS GETTING READY TO START ANOTHER TREATMENT. HE IS LOOKING FORWARD TO THIS NEW TREATMENT. HE IS HOPFUL THAT IS WILL SLOW DOWN HIS CANCER, BUT HE DOES NOT BELIEVE THAT IT WILL GET RID OF IT. HE REPORTED THAT PRIOR TO THIS ADMISION HE ONLY TAKES TYLENOL FOR PAIN. 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 WE DISCUSSED THE POSIBILITY OF MORE SYMPTOMS WITH HIS NEW TREATMENT. HE REPORTED THAT HE IS FREQUENTLY HAVING TO RECIEVE BLOOD TRANSFUSION AND THAT HE USUALLY FEELS BETTER THE NEXT DAY AFTER RECIEVING THEM. HIS HGB IS LOW TODAY AND HE SAID THAT THE DR TOLD HIM HE WOULD PROBABLY RECIEVE 2 UNITS TODAY.
[2023-06-24 17:10] VITALS: BP 142/71
--- NOTE | 2023-06-24 20:03 | NUR ---
SHIFT SUMMARY PATIENT WITH PAIN THROUGHOUT THE DAY, MEDICATED PER EMAR. FEVER THIS EVENING AND MEDICATED WITH PERCOCET FOR PAIN AND FEVER AT 1825. PATIENT DENIES SHORTNESS OF BREATH OR ANY OTHER ISSUES AT THIS TIME. BED IN LOW POSITION. CALL LIGHT IN REACH. AT BEDSIDE.
[2023-06-24 20:30] VITALS: BP 114/72
[2023-06-24 23:13] VITALS: BP 158/99
[2023-06-24 23:48] VITALS: BP 129/62
[2023-06-25] VITALS (13 sets, daily range): BP systolic 111–122; BP diastolic 61–72
[2023-06-25 05:15] LABS: Hematocrit 22.8 % (37.0-53.0); Hemoglobin 7.7 g/dL (13.5-17.5); Mean Corpuscular HGB 29.2 pg (26.0-34.0); Mean Corpuscular HGB Conc 33.8 g/dL (31.5-36.5); Mean Corpuscular Volume 86 fL (80-100); Platelet Count 75 K/mm3 (150-400); RDW Coefficient Variation 15.6 % (11.7-14.2); RDW Standard Deviation 48.3 fL (35.1-46.3); Red Blood Cell Count 2.64 M/mm3 (4.30-5.90)
[2023-06-25 05:44] LABS: White Blood Cell Count 0.15 K/mm3 (4.00-11.30)
[2023-06-25 06:00] LABS: Albumin, Blood 2.1 g/dL (3.4-5.0); Anion Gap 6 mmol/L (6-16); Blood Urea Nitrogen 32 mg/dL (8-24); Bun/Creatinine Ratio 21.2 (12.0-20.0); CO2, Blood 23 mmol/L (21-32); Calcium, Blood 8.3 mg/dL (8.5-10.1); Chloride, Blood 111 mmol/L (98-108); Creatinine, Blood 1.51 mg/dL (0.60-1.20); Glomerular Filtration Rate 48 (60-); Glucose, Blood 147 mg/dL (70-99); Phosphorus, Blood 3.2 mg/dL (2.5-4.9); Potassium, Blood 4.2 mmol/L (3.5-5.5); Sodium, Blood 140 mmol/L (136-145)
[2023-06-25 06:23] LABS: BAND PERCENT MAN 8 % (0-8); BASOPHILS PERCENT MAN 0 % (0-2); EOSINOPHILS PERCENT MAN 0 % (0-6); LYMPHOCYTES ABSOLUTE MAN 0.06 K/mm3 (0.84-5.20); LYMPHOCYTES PERCENT MAN 40 % (21-46); MONOCYTES PERCENT MAN 0 % (4-13); NEUTROPHILS ABSOLUTE MAN 0.09 K/mm3 (1.96-9.15); SEG NEUTROPHILS PERCENT MAN 52 % (41-73); TOTAL CELLS COUNTED 25
--- NOTE | 2023-06-25 07:48 | NUR ---
SHIFT SUMMERY. PT RESTING IN BED AT THIS TIME. PTS IN RECLINER AT BEDSIDE. PT TO REACEAVE PRBC LAST NOC. WHILE TAKING VITALS AND GETTING READY TO GIVEN PRBC, PT STARTED TO SHAKE UNCONTROLABVLY. PT SWEATY TO HIS BACK BUT AT THAT TIME PTS TEMP 98.6, PT STATED HE WAS NOT COLD BUT COULD NOT STOP SHAKING, PT BREATHING VERY SHALLOW AND PT HAD A WHEEZE. LUNGS SOUNDED CLEAR . PT O2 SAT ONLY AT 88 % O2 APPLYED AT 2L PER NC. PRBC STARTED PST BREATHING SLOWED PT STOPPED SHAKING AND SEEMED TO RELAX. T VITALS AT 15 MIN PTS VIATLS BETTER EXCEPT PT NOW HAD TEMP TEMPORAL OF 100.5 AND ORALY 103.3. STOPPED INFUSION AND CALLED MD RODRIGUEZ SAID TO GIVEN PT TYLENOL AND CONTINUE PRBC INFUSION. WHEN INFUSION NEARLY DONE PT COMMENTED HOW MUCH BETTER HE WAS FEELING. PT HAD DENIED ABDULLAHI FLANK PAIN CHEST PAIN OR SOB. INFUSION OF PRBC COMPLEET AND PT NOW RESTING BETTER. LAB CALLED AND PDT HAD CRITICAL WBC 0.15 CALLED NO NEW ORDERS. CALL LIGHT IN REACH.
--- NOTE | 2023-06-25 14:54 | NUR ---
PT RECEIVED BLOOD, STATES DOES NOT USE O2 AT HOME. SATS >97% R/A. REMOVED O2.
--- NOTE | 2023-06-25 18:22 | NUR ---
PT QUITE PLEASANT TODAY. RECEIVED 1 UNIT PRBC THIS SHIFT. HAS FELT GOOD ENOUGH TO GET UP FROM BED THIS AFT AFTER BLOOD. AT BEDSIDE MOST OF DAY. DR STATES TO START WBC BOOSTER TOMORROW. NO OTHER CONCERNS NOTED TODAY. BED IN LOW POSITION, CALL LITE IN REACH, CALLS APPROP
[2023-06-26 03:10] VITALS: BP 134/71
--- NOTE | 2023-06-26 04:43 | NUR ---
REPORT RECEIVED VERIFIED PT IS A/O WITH AT BEDSIDE TO ASSIST. PT IS AMB WITH STAND BY ASSIST AND THE WILL CALL IF NEEDING ANY ASSISTENCE. PAIN TO LEFT CHEST WALL IS CHIEF COMPLAINT AND PT WAS MEDICATED AND SLEPT VERY WELL. VSS CALL LIGHT WITHIN REACH PT ABLE TO MAKE NEEDS KNOWN. WILL CONT TO MONITOR
[2023-06-26 05:27] LABS: Hematocrit 26.2 % (37.0-53.0); Hemoglobin 8.8 g/dL (13.5-17.5); Mean Corpuscular HGB 29.4 pg (26.0-34.0); Mean Corpuscular HGB Conc 33.6 g/dL (31.5-36.5); Mean Corpuscular Volume 88 fL (80-100); Mean Platelet Volume 10.8 fL (9.1-12.4); Platelet Count 79 K/mm3 (150-400); RDW Coefficient Variation 16.4 % (11.7-14.2); RDW Standard Deviation 51.7 fL (35.1-46.3); Red Blood Cell Count 2.99 M/mm3 (4.30-5.90)
[2023-06-26 05:48] LABS: BASOPHILS PERCENT AUTO 0 % (0-2); EOSINOPHILS PERCENT AUTO 0 % (0-6); IMMATURE GRAN ABSOLUTE AUTO 0.01 K/mm3 (0.00-0.10); IMMATURE GRAN PERCENT AUTO 3 % (0-1); LYMPHOCYTES ABSOLUTE AUTO 0.22 K/mm3 (0.84-5.20); LYMPHOCYTES PERCENT AUTO 73 % (21-46); MONOCYTES ABSOLUTE AUTO 0.01 K/mm3 (0.16-1.47); MONOCYTES PERCENT AUTO 3 % (4-13); NEUTROPHILS ABSOLUTE AUTO 0.06 K/mm3 (1.96-9.15); NEUTROPHILS PERCENT AUTO 20 % (41-73)
--- NOTE | 2023-06-26 06:39 | NUR ---
NOTE CONCERNING ANTIBIOTICS SPOKE WITH PT BEFORE GIVING ROCEPHIN BECAUSE PT HAS PCN ALLERGIES. CONFIRMED THAT PT DID HAVE AN ALLERGY BUT ONLY WHEN HE WAS A KID AND THAT SO FAR AFTER RECEIVING ONE DOSE PT SHAW WELL, SO I MADE THE DECISION TO CONT GIVING THE MEDICATION AND MONITORED PT. NO CHANGE IN CONDITION NOTED.
[2023-06-26 06:45] LABS: Albumin, Blood 1.9 g/dL (3.4-5.0); Albumin/Globulin Ratio 0.4 (0.8-1.8); Bilirubin, Total 0.9 mg/dL (0.1-1.0); Bun/Creatinine Ratio 24.6 (12.0-20.0); Creatinine, Blood 1.42 mg/dL (0.60-1.20); Globulin, Blood 4.5 g/dL (2.2-4.0); Potassium, Blood 4.5 mmol/L (3.5-5.5); Total Protein, Blood 6.4 g/dL (6.4-8.2)
[2023-06-26 08:09] VITALS: BP 122/75
[2023-06-26 08:11] VITALS: BP 122/75
[2023-06-26 16:02] VITALS: BP 139/78
--- NOTE | 2023-06-26 18:01 | NUR ---
PT QUITE PLEASANT TODAY, STATES FEELING BETTER OVERALL. ABLE TO AMBULATE ROOM SBA TO INDEPENDANT. WBC STILL LOW, SHOT GIVEN THIS AM PER EMAR TO BOOST WBC. LUNGS DIM UPPER LEFT AND IS PRESENTLY SAT >97% ON R/A. TELE NSR AT 78 THIS AM. NO NEW CONCERNS NOTED. BED IN LOW POSITION, CALL LITE IN REACH, CALLS APPROP
[2023-06-26 19:52] VITALS: BP 137/75
--- NOTE | 2023-06-27 04:18 | NUR ---
PATIENT IS ALERT AND ORIENTED, ON TELE AT SINUS RHYTHM AT 77. WITH IV LINE ON LEFT ARM ON SALINE LOCKED; DUE IV ANTIBIOTIC GIVEN AND TOLERATED. COMPLAINT OF RIB PAIN, TYLENOL TABLET GIVEN. NEEDS ATTENDED. CALL LIGHT WITHIN PATIENT;S REACH. WILL CONTINUE TO MONITOR.
[2023-06-27 04:31] VITALS: BP 164/86
[2023-06-27 05:09] LABS: Hematocrit 26.3 % (37.0-53.0); Mean Corpuscular HGB 29.4 pg (26.0-34.0); Mean Corpuscular HGB Conc 34.2 g/dL (31.5-36.5); Mean Corpuscular Volume 86 fL (80-100); Mean Platelet Volume 10.4 fL (9.1-12.4); Platelet Count 99 K/mm3 (150-400); RDW Coefficient Variation 15.9 % (11.7-14.2); RDW Standard Deviation 49.2 fL (35.1-46.3); Red Blood Cell Count 3.06 M/mm3 (4.30-5.90)
[2023-06-27 05:16] LABS: White Blood Cell Count 0.36 K/mm3 (4.00-11.30)
[2023-06-27 05:58] LABS: Albumin/Globulin Ratio 0.5 (0.8-1.8); Bilirubin, Total 1.1 mg/dL (0.1-1.0); Bun/Creatinine Ratio 24.8 (12.0-20.0); Calcium, Blood 8.3 mg/dL (8.5-10.1); Creatinine, Blood 1.13 mg/dL (0.60-1.20); Globulin, Blood 4.4 g/dL (2.2-4.0); Potassium, Blood 4.2 mmol/L (3.5-5.5); Total Protein, Blood 6.4 g/dL (6.4-8.2)
[2023-06-27 06:03] LABS: BAND PERCENT MAN 4 % (0-8); BASOPHILS PERCENT MAN 0 % (0-2); EOSINOPHILS PERCENT MAN 0 % (0-6); LYMPHOCYTES ABSOLUTE MAN 0.24 K/mm3 (0.84-5.20); LYMPHOCYTES PERCENT MAN 68 % (21-46); MONOCYTES ABSOLUTE MAN 0.01 K/mm3 (0.16-1.47); MONOCYTES PERCENT MAN 4 % (4-13); SEG NEUTROPHILS PERCENT MAN 24 % (41-73); TOTAL CELLS COUNTED 25
[2023-06-27 08:31] VITALS: BP 146/86
[2023-06-27] MEDS ORDERED: CEFDINIR300 M1 PO (12:05)
--- NOTE | 2023-06-27 12:30 | NUR ---
PATIENT DISCHARGED TO HOME. ALL QUESTIONS ADDRESSED. SPOUSE TO TAKE HIM HOME AND PATIENT TO FOLLOW UP WITH ONCOLOGY DIRECTED.
== END 2023-06-27 12:23 | disposition home or self-care (01) | DRG 871 ==
LOC: ER 18:02 → MEDS 18:03 → ENPENDDIS 06-27 11:54 → MEDS 06-27 12:23
PROVIDERS: Hospitalist; Internal Medicine; Student in an Organized Health Care Education/Training Program; ADMIT Internal Medicine
PROC: 3E03329 Introduction of Other Anti-infective into Peripheral Vein, Percutaneous Approach (ICD-10-PCS; 2023-06-23)
PROC: 30233N1 Transfusion of Nonautologous Red Blood Cells into Peripheral Vein, Percutaneous Approach (ICD-10-PCS; principal; 2023-06-24)
DX: A41.9 Sepsis, unspecified organism (principal); J18.9 Pneumonia, unspecified organism; C92.00 Acute myeloblastic leukemia, not having achieved remission; D61.818 Other pancytopenia; I82.611 Acute embolism and thrombosis of superficial veins of right upper extremity; D84.9 Immunodeficiency, unspecified; D70.9 Neutropenia, unspecified; R50.81 Fever presenting with conditions classified elsewhere; Z66 Do not resuscitate; N18.30 Chronic kidney disease, stage 3 unspecified; I12.9 Hypertensive chronic kidney disease with stage 1 through stage 4 chronic kidney disease, or unspecified chronic kidney disease; R16.1 Splenomegaly, not elsewhere classified; K76.89 Other specified diseases of liver; K59.00 Constipation, unspecified; N40.0 Benign prostatic hyperplasia without lower urinary tract symptoms; K21.9 Gastro-esophageal reflux disease without esophagitis; D73.4 Cyst of spleen; I80.8 Phlebitis and thrombophlebitis of other sites; Z90.49 Acquired absence of other specified parts of digestive tract; Z85.060 Personal history of malignant carcinoid tumor of small intestine; Z88.0 Allergy status to penicillin; Z79.01 Long term (current) use of anticoagulants; E78.5 Hyperlipidemia, unspecified
CPT/HCPCS: 36415; 36430; 71045; 74177; 80053; 80069; 83880; 84484; 85025; 86850; 86900; 86901; 86923; 93005; 93010; 96365-59; 96367; 96368; 96375; 96376; 99285-25; A9270; G0378; J0456; J0696; J1885; J1940; J1956; J3010; J7030; J7050; P9016; Q5110; Q9967

== ENCOUNTER 2023-07-01 02:04 | Day surgery (SDC) | payer OTHER ==
[2023-06-29 12:25] LABS: Mean Corpuscular HGB 29.2 pg (26.0-34.0); Mean Corpuscular HGB Conc 33.1 g/dL (31.5-36.5); Mean Corpuscular Volume 88 fL (80-100); Mean Platelet Volume 10.4 fL (9.1-12.4); Platelet Count 109 K/mm3 (150-400); RDW Coefficient Variation 15.4 % (11.7-14.2); RDW Standard Deviation 48.4 fL (35.1-46.3); Red Blood Cell Count 1.95 M/mm3 (4.30-5.90)
[2023-06-29 12:39] LABS: Albumin, Blood 2.1 g/dL (3.4-5.0); Albumin/Globulin Ratio 0.5 (0.8-1.8); Bilirubin, Total 1.1 mg/dL (0.1-1.0); Bun/Creatinine Ratio 15.6 (12.0-20.0); Creatinine, Blood 1.22 mg/dL (0.60-1.20); Globulin, Blood 4.5 g/dL (2.2-4.0); Total Protein, Blood 6.6 g/dL (6.4-8.2)
[2023-06-29 12:46] LABS: Hemoglobin 5.7 g/dL (13.5-17.5); White Blood Cell Count 0.32 K/mm3 (4.00-11.30)
[2023-06-29 12:47] LABS: Hematocrit 17.2 % (37.0-53.0)
[2023-06-29 13:59] LABS: BASOPHILS PERCENT MAN 0 % (0-2); EOSINOPHILS PERCENT MAN 0 % (0-6); LYMPHOCYTES ABSOLUTE MAN 0.21 K/mm3 (0.84-5.20); LYMPHOCYTES PERCENT MAN 68 % (21-46); MONOCYTES PERCENT MAN 0 % (4-13); SEG NEUTROPHILS PERCENT MAN 32 % (41-73); TOTAL CELLS COUNTED 25
[~2023-07-01 02:04] MED LIST changes: +CEFDINIR300 M1 PO; +VENCLEXTA100 MG PO
[2023-07-01 07:50] VITALS: BP 117/63
[2023-07-01 08:09] VITALS: BP 109/69
[2023-07-01 09:09] VITALS: BP 118/61
[2023-07-01 09:43] VITALS: BP 126/61
[2023-07-01 10:01] VITALS: BP 107/70
[2023-07-01 11:25] VITALS: BP 139/66
== END 2023-07-01 11:25 | disposition home or self-care (01) ==
LOC: ATC 02:04 → LAB FUT 06-21 12:30 → EDSTATUS 06-21 12:30
PROVIDERS: Internal Medicine Hematology & Oncology
DX: C92.00 Acute myeloblastic leukemia, not having achieved remission (principal); C7A.098 Malignant carcinoid tumors of other sites; I10 Essential (primary) hypertension; E78.5 Hyperlipidemia, unspecified; Z87.891 Personal history of nicotine dependence; Z88.0 Allergy status to penicillin; Z79.899 Other long term (current) drug therapy
CPT/HCPCS: 36415; 36430; 80053; 85025; 86850; 86900; 86901; 86923; J7050; P9016

== ENCOUNTER 2023-10-12 03:14 | Day surgery (SDC) | payer OTHER ==
[2023-10-10 13:48] LABS: Hematocrit 18.3 % (37.0-53.0); Hemoglobin 6.2 g/dL (13.5-17.5); Mean Corpuscular HGB 30.8 pg (26.0-34.0); Mean Corpuscular HGB Conc 33.9 g/dL (31.5-36.5); Mean Corpuscular Volume 91 fL (80-100); Mean Platelet Volume 11.5 fL (9.1-12.4); RDW Coefficient Variation 14.7 % (11.7-14.2); RDW Standard Deviation 47.8 fL (35.1-46.3); Red Blood Cell Count 2.01 M/mm3 (4.30-5.90)
[2023-10-10 14:13] LABS: Platelet Count 19 K/mm3 (150-400)
[2023-10-10 15:31] LABS: BASOPHILS PERCENT MAN 0 % (0-2); EOSINOPHILS PERCENT MAN 0 % (0-6); LYMPHOCYTES ABSOLUTE MAN 99.26 K/mm3 (0.84-5.20); LYMPHOCYTES PERCENT MAN 92 % (21-46); MONOCYTES ABSOLUTE MAN 7.55 K/mm3 (0.16-1.47); MONOCYTES PERCENT MAN 7 % (4-13); NEUTROPHILS ABSOLUTE MAN 1.07 K/mm3 (1.96-9.15); SEG NEUTROPHILS PERCENT MAN 1 % (41-73); TOTAL CELLS COUNTED 100
[2023-10-12] VITALS (8 sets, daily range): BP systolic 120–154; BP diastolic 63–78
[2023-10-12] MEDS ORDERED: NS 250 ML IV SCH (07:40)
== END 2023-10-12 18:30 | disposition home or self-care (01) ==
LOC: ATC 03:14
PROVIDERS: Registered Nurse Oncology
DX: C92.00 Acute myeloblastic leukemia, not having achieved remission (principal); C7A.098 Malignant carcinoid tumors of other sites; Z88.0 Allergy status to penicillin
CPT/HCPCS: 36415; 36430; 85025; 86850; 86900; 86901; 86923; J7050; P9016; P9053